=== PATIENT | female | born 1960 | race Two or more races ===

== ENCOUNTER 2022-11-06 14:53 | Emergency (ER) | payer OTHER ==
[~2022-11-06] VITALS: Ht 165.1 cm; Wt 62.1 kg
== END 2022-11-06 21:29 | disposition home or self-care (01) ==
LOC: ER 14:53
DX: R60.0 Localized edema (principal); I10 Essential (primary) hypertension; Z88.6 Allergy status to analgesic agent; Z88.0 Allergy status to penicillin; Z88.2 Allergy status to sulfonamides